=== PATIENT | male | born 1995 | race Caucasian/White ===

== ENCOUNTER 2021-10-02 14:00 | Emergency (ER) | payer BC, SELFPAY ==
[2021-10-02 14:14] VITALS: BP 152/89; PULSE 85; RESP 16; TEMP 36.6; O2SAT 100
--- NOTE | 2021-10-02 15:19 | ED_ITS ---
HPI - Back Pain/Injury General Chief Complaint: Back Pain/Injury Stated Complaint: Lower Back Pain Time Seen by Provider: 10/02/21 14:47 History of Present Illness HPI Narrative: 18-year-old male presents to the emergency room for evaluation of low back pain. Patient states that he woke up this morning with left-sided low back pain that is worse with certain movements. Patient denies any radiating pain. Patient states that he initially felt the back pain last night following intercourse with his . Patient denies any known injury or trauma to his low back. Patient denies any difficulty or changes with his bowel or bladder habits. Patient denies any saddle anesthesia. Review of Systems Review of Systems: CONSTITUTIONAL: Denies fever, chills, or sweats. EYES: Denies visual changes, redness, or discharge. ENT: Denies rhinorrhea, congestion, sore throat, or otalgia. CARDIOVASCULAR: Denies chest pain, palpitations, or edema. RESPIRATORY: Denies cough or dyspnea. GASTROINTESTINAL: Denies abdominal pain, nausea, vomiting, or diarrhea. GENITOURINARY: Denies dysuria or hematuria. SKIN: Denies rash or itching. MUSCULOSKELETAL: Reports low back pain NEUROLOGIC: Denies headache, numbness, dizziness, or weakness. PSYCHIATRIC: Denies anxiety or depression. Exam Narrative: GENERAL: Well-appearing, well-nourished, and in no acute distress. HEAD: Normocephalic, atraumatic. EYES: PERRLA and EOMI. CHEST: Clear to auscultation. No respiratory distress. No wheezes rales or rhonchi HEART: Regular rate and rhythm. No murmur heard. Normal peripheral pulses. ABDOMEN: Soft, nontender, nondistended, normal active bowel sounds. EXTREMITIES: Normal range of motion. No edema. BACK: Tenderness to the left lumbar paraspinal muscle, muscle spasms present. No midline tenderness, no step-offs, no bony abnormality. Range of motion painful when rotates to the left negative SLE bilaterally SKIN: Warm, dry, no rash. NEURO: No focal deficits. Alert and oriented x3. PSYCH: Normal mood and affect. Course Vital Signs Vital signs: Vital Signs Temperature 36.6 C 10/02/21 14:14 Pulse Rate 85 10/02/21 14:14 Respiratory Rate 16 10/02/21 14:14 Blood Pressure 152/89 H 10/02/21 14:14 Pulse Oximetry 100 10/02/21 14:14 Oxygen Delivery Room Air 10/02/21 14:14 Temperature 36.6 C 10/02/21 14:14 Pulse Rate 85 10/02/21 14:14 Respiratory Rate 16 10/02/21 14:14 Blood Pressure 152/89 H 10/02/21 14:14 Pulse Oximetry 100 10/02/21 14:14 Oxygen Delivery Room Air 10/02/21 14:14 Discharge Plan Discharge Clinical Impression: Strain of lumbar region Patient Disposition: Home, Self-Care Condition: Stable Instructions: Antibiotic Form, Acute Low Back Pain (ED) Additional Instructions: Recommend ibuprofen or naproxen. You may use heating pad to affected area. Also recommend stretching. Prescriptions: New methocarbamol 750 mg tablet 750 mg PO TID Qty: 20 0RF Follow-up/Referrals: PHYSICIAN,SU[employer]ODUCTS MARKETING MANAGER [Primary Care Provider] - Time of Disposition: 15:23
== END 2021-10-02 15:53 | disposition home or self-care (01) ==
PROVIDERS: Emergency Provider Nurse Practitioner Family
DX: S39.012A Strain of muscle, fascia and tendon of lower back, initial encounter (principal); X50.0XXA Overexertion from strenuous movement or load, initial encounter
CPT/HCPCS: 99283

== ENCOUNTER → 2022-10-13 11:11 | Outpatient (CLI) | payer BC, SELFPAY ==
--- NOTE | ~2022-10-13 | XR_ITS ---
Lumbosacral Spine: AP and lateral views Clinical History: Pain Findings: The normal lordotic curve is maintained. The vertebral bodies and posterior elements are i ntact. The intervertebral disc spaces are preserved. The sacroiliac joints are normally outlined. Impression: No significant abnormality. Reviewed, dictated and finalized at [facility]. Impression: No significant abnormality.
== END ==
PROVIDERS: PCP Physician Assistant; Visit Provider Physician Assistant
DX: S39.012A Strain of muscle, fascia and tendon of lower back, initial encounter (principal); X58.XXXA Exposure to other specified factors, initial encounter
CPT/HCPCS: 72100

== ENCOUNTER → 2023-05-29 15:58 | Outpatient (CLI) | payer BC, SELFPAY ==
--- NOTE | ~2023-05-29 | MR_ITS ---
MRI of the lumbar spine Clinical History: Back pain Technique: Axial T2-weighted images, and sagittal T1-weighted, T2-weighted, and T2 fat-sat images wer e acquired. Findings: There is no fracture or subluxation of the lumbar spine. Vertebral bodies maintain normal h eight and alignment. No bone marrow signal abnormality seen. At L1-L2, L2-L3, L3-L4, L4-L5, there is no significant disc bulge or herniation. There are mild to mo derate facet arthropathy changes at these levels. No spinal canal stenosis at these levels. There is mild bilateral neural foraminal narrowing at L4-L5. Remaining neural foramina at these levels are pre served. At L5-S1, there is left paracentral disc extrusion, which impinges the descending left-sided S1-S2 le elif nerve root. No spinal canal stenosis otherwise resolved. There is moderate left neural foraminal narrowing. There is minimal right neural foraminal narrowing. Paravertebral soft tissues are unremarkable. Impression: Left paracentral disc extrusion at L5-S1, which impinges the descending left-sided S1-S2 level nerve root. Neural foraminal narrowing at L4-L5 and L5-S1, as detailed above. Reviewed, dictated and finalized at location . FING MACHINE OPERATOR Impression: Left paracentral disc extrusion at L5-S1, which impinges the descending left-si ded S1-S2 level nerve root. Neural foraminal narrowing at L4-L5 and L5-S1, as detailed above.
== END ==
PROVIDERS: PCP Nurse Practitioner Family; Visit Provider Nurse Practitioner Family
DX: S39.012A Strain of muscle, fascia and tendon of lower back, initial encounter (principal); X58.XXXA Exposure to other specified factors, initial encounter
CPT/HCPCS: 72148